=== PATIENT | male | born 1985 | race Caucasian/White ===

== ENCOUNTER 2021-07-23 18:02 | Inpatient (IN) | payer SELFPAY ==
[~2021-07-23] VITALS: Ht 165.1 cm; Wt 59.0 kg
--- NOTE | 2021-07-23 18:18 | NUR ---
Patient BIBA to ER bed 2.
[2021-07-23 18:25] VITALS: BP 117/66
--- NOTE | 2021-07-23 18:25 | NUR ---
DR SERRANO AT BEDSIDE EXAMINING PT
--- NOTE | 2021-07-23 18:30 | NUR ---
36 Y/O MALE BIBA FROM HOME C/O SOB X1DAY. PER EMS PT DESATURATING 66% ON ROOM AIR. PT PLACED ON 10L NON REBREATHER O2 SATURATION AT 73%. IV SITE TO LT AC 20G, INTACT, PATENT. RECEIVED 4MG OF ZOFRAN AND 1 L BOLUS EN ROUTE. ALSO C/O HEADACHE, NAUSEA/VOMITING. MEDHX: DENIES NKA
--- NOTE | 2021-07-23 18:35 | NUR ---
PT PRESENTS WITH LABORED BREATHING, TACHYPNEIC, USING ACCESSORY MUSCLES SATING 95% ON 15 LPM NRB. BS REVEAL RUL, RML: DIMINISHED RLL: COARSE/DIM. JUSTUS, LLL: CLEAR. WILL CONTINUE TO MONITOR.
--- NOTE | 2021-07-23 18:54 | NUR ---
ABG RESULTS SHOWED TO BE VENOUS BLOOD REPORTED RESULTS TO DR. SERRANO.
--- NOTE | 2021-07-23 18:54 | NUR ---
FLU, IMAN, AND NOVEL SWABS COLLECTED AND SENT TO LAB WITH [facility]
--- NOTE | 2021-07-23 18:55 | NUR ---
LAB AT BEDSIDE
--- NOTE | 2021-07-23 19:05 | NUR ---
URINE COLLECTED HANDED TO FARHAT MCGEE
--- NOTE | 2021-07-23 19:07 | NUR ---
XRAY AT BEDSIDE
[2021-07-23 19:17] LABS: BASOPHILS # (AUTO) 0.1 K/uL (0.00-0.22); BASOPHILS % (AUTO) 0.6 % (0.0-2.0); HEMATOCRIT 46.4 % (36-52); HEMOGLOBIN 15.7 g/dL (12.0-18.0); LYMPHOCYTES # (AUTO) 0.3 K/uL (2.0-11.5); LYMPHOCYTES % (AUTO) 2.9 % (20.5-51.1); MEAN CORPUSCULAR HEMOGLOBIN 32 pg (27-31); MEAN CORPUSCULAR HGB CONC 34 g/dL (33-37); MEAN CORPUSCULAR VOLUME 93.6 fL (80-94); MONOCYTES # (AUTO) 0.4 K/uL (0.8-1.0); MONOCYTES % (AUTO) 4.1 % (1.7-9.3); NEUTROPHILS # (AUTO) 9.6 K/uL (1.8-7.7); NEUTROPHILS % (AUTO) 92.4 % (42.2-75.2); PLATELET COUNT (AUTO) 226 K/uL (140-450); RED BLOOD CELL COUNT(AUTO) 4.96 MIL/uL (4.20-6.10); RED CELL DISTRIBUTION WIDTH 12.6 % (11.6-13.7); WHITE BLOOD COUNT (AUTO) 10.4 K/uL (4.8-10.8)
--- NOTE | 2021-07-23 19:23 | NUR ---
Pt report given to MEGAN RN. Transfer of care at this time.
--- NOTE | 2021-07-23 19:23 | NUR ---
Received report from Yehuda JUAREZ for continuity of care.
[2021-07-23 19:24] LABS: APPEARANCE,URINE CLEAR (CLEAR); BILIRUBIN,URINE NEGATIVE (NEGATIVE); BLOOD, URINE 1+ (NEGATIVE); COLOR,URINE YELLOW (YELLOW); LEUKOCYTE ESTERASE ,URINE NEGATIVE (NEGATIVE); NITRITE, URINE NEGATIVE (NEGATIVE); UGLUCOSE 3+ (NEGATIVE)
[2021-07-23] MEDS ORDERED: AZITHROMYCIN 500 MG in DEXTROSE 5% 250 ML IV ONE (19:50)
[2021-07-23] MEDS ORDERED: DEXAMETHASONE 10 MG/ML VIAL IVP ONE (19:50)
[2021-07-23 19:57] LABS: ALBUMIN 2.9 g/dL (3.4-5.0); ANION GAP 14.5 (8-16); CARBON DIOXIDE 25.2 mmol/L (21-32); CREATININE 1.5 mg/dL (0.6-1.3); POTASSIUM 3.7 mmol/L (3.5-5.1); TOTAL BILIRUBIN 0.2 mg/dL (0.0-1.0)
--- NOTE | 2021-07-23 19:57 | NUR ---
PATIENT REPORTS FEELING LIKE IN A DREAM-- PATIENT BP AT 77/46. MERCED DELAROSA
[2021-07-23] MEDS ORDERED: NACL 0.9% 1,000 ML IV ONE ×2 (20:00→20:30)
[2021-07-23 20:02] LABS: LACTATE DEHYDROGENASE 280 U/L (85-227)
[2021-07-23 20:08] LABS: C-REACTIVE PROTEIN QUANT < 0.2 mg/dL (0.0-0.9)
[2021-07-23] MEDS ORDERED: cefTRIAXone 1,000 MG VIAL ONE (20:15)
--- NOTE | 2021-07-23 20:30 | NUR ---
DR. SERRANO ORDERED BIPAP. PLACED PT ON V60 ST MODE IPAP 12, EPAP 6, RR 14, 100% FIO2. PT CURRENT SAT 100%. WILL CONTINUE TO MONITOR.
[2021-07-23] MEDS ORDERED: AZITHROMYCIN 500 MG INJ VIAL IV ONE (20:44)
[2021-07-23 20:50] LABS: RBC,URINE 0-5 /HPF (0-5); WBC,URINE 0-5 /HPF (0-5)
--- NOTE | 2021-07-23 20:53 | NUR ---
provided patient with urinal to urinate
[2021-07-23] MEDS ORDERED: ASPIRIN 325 MG TAB PO ONE (20:55)
--- NOTE | 2021-07-23 22:25 | NUR ---
TRANSFERRED PT TO CT ON NRB WITH NO ISSUES. PT BACK IN ER ON BIPAP SATING 100%. WILL CONTINUE TO MONITOR.
--- NOTE | 2021-07-23 22:25 | NUR ---
patient to ct via [facility]
[2021-07-23] MEDS: NACL 0.9% 1,000 ML IV SCH (22:45)
--- NOTE | 2021-07-24 00:07 | NUR ---
Called MD Hoff regarding patient condition-- received orders of 1L of NS bolus and continue to monitor BP for patient.
[2021-07-24] MEDS ORDERED: NACL 0.9% 1,000 ML IV SCH (01:20)
--- NOTE | 2021-07-24 02:10 | NUR ---
PT LAYING IN BED, HOB ELEVATE, SKIN INTACT, W/ NO SINGS IF RESPIRATORY DISTRESS SATING 100% ON V6O. BS REVEAL RUL,RML: CLEAR DIMINISHED RLL: COARSE DIMINISHED/ JUSTUS,LL: CLEAR. PT TOLERATING NIPPV WELL WILL CONTINUE TO MONITOR.
--- NOTE | 2021-07-24 02:19 | NUR ---
sent message to MD Hoff about patient BP awaiting for orders
--- NOTE | 2021-07-24 02:58 | NUR ---
Patient appears to be resting comfortably in bed- semi fowlers, eyes closed, fluids running, and on bipap. Vital Signs within normal limits. Respirations even and unlabored. No signs of distress noted. Safety measures are in place, and will continue to monitor patient.
--- NOTE | 2021-07-24 04:15 | NUR ---
PT LAYING IN BED, HOB ELEVATE, SKIN INTACT, W/ NO SINGS IF RESPIRATORY DISTRESS SATING 100% ON V6O. PT TOLERATING NIPPV WELL. WILL CONTINUE TO MONITOR.
--- NOTE | 2021-07-24 06:55 | NUR ---
provided urinal for patient
[2021-07-24] MEDS: NACL 0.9% 1,000 ML IV SCH ×2 (07:10→15:16)
--- NOTE | 2021-07-24 07:19 | NUR ---
Pt report given to Viktor RN and Delisa JUAREZ. Transfer of care at this time.
--- NOTE | 2021-07-24 07:30 | NUR ---
Called MD Hoff about troponin, low BP and low MAP-- received orders of Heparin 5000units subQ Q12h, NS changed to 120ml/hr, Levophed drip started 4mg, and PICC line order
[2021-07-24] MEDS ORDERED: NOREPINEPHRINE 4 MG in DEXTROSE 5% 250 ML IV PRN (07:40)
--- NOTE | 2021-07-24 08:30 | NUR ---
DR BROWN HERE TO SEE PT. MADE AWARE OF ELEVATED TROPONIN. NO NEW ORDERS NOTED.
[2021-07-24] MEDS ORDERED: AZITHROMYCIN 500 MG INJ VIAL IV ONE (09:09)
[2021-07-24] MEDS ORDERED: cefTRIAXone 1,000 MG VIAL ONE (09:10)
[2021-07-24] MEDS ORDERED: ALBUTEROL HFA MDI 90 MCG/ACTUATION 8 GM INH PRN (09:15)
[2021-07-24] MEDS ORDERED: POTASSIUM CHLORIDE 10 MEQ TABER PO PRN (09:30)
[2021-07-24] MEDS ORDERED: ACETAMINOPHEN 325 MG TAB PO PRN (09:30)
[2021-07-24] MEDS ORDERED: HYDROcodone/APAP 5/325 MG 1 TAB TAB PO PRN (09:30)
[2021-07-24] MEDS ORDERED: MORPHINE SULFATE 2 MG/ML SYR IVP PRN (09:30)
[2021-07-24] MEDS ORDERED: ONDANSETRON 4 MG/2 ML VIAL IM/IVP PRN (09:30)
[2021-07-24] MEDS ORDERED: DOCUSATE SODIUM 100 MG GELCAP PO PRN (09:30)
[2021-07-24] MEDS ORDERED: LORazepam 2 MG/ML VIAL IM/IVP PRN (09:30)
[2021-07-24] MEDS ORDERED: MAG SULF 2000 MG/WATER PREMIX 50 ML IV PRN (09:30)
[2021-07-24] MEDS ORDERED: ZOLPIDEM 5 MG TAB PO PRN (09:30)
--- NOTE | 2021-07-24 10:43 | NUR ---
LEVOPHED INFUSING PER ORDER 4MCG/MIN VERIFIED BY SECOND RN.
[2021-07-24 11:39] LABS: CHOL/HDL RATIO 2.2 (1-4.5); THYROID STIMULATING HORMONE 0.97 uIU/mL (0.34-3.74)
--- NOTE | 2021-07-24 13:36 | NUR ---
PATIENT HAS BEEN SCREENED AND CATEGORIZED HIGH NUTRITION RISK. PATIENT WILL BE SEEN WITHIN 1-2 DAYS OF ADMISSION. 07/24/21-07/25/[address]
[2021-07-24] MEDS: AZITHROMYCIN 500 MG in DEXTROSE 5% 250 ML IV SCH (13:53)
[2021-07-24] MEDS: methylPREDNISolone SS 40 MG/ML VIAL IVP SCH ×2 (13:53→21:38)
--- NOTE | 2021-07-24 14:09 | NUR ---
07/24/21 RD INITIAL ASSESSMENT COMPLETED PLEASE REFER TO NUTRITION ASSESSMENT UNDER CARE ACTIVITY FOR ESTIMATED NUTRITIONAL NEEDS. 1. WHEN/IF MEDICALLY APPROPRIATE, RECOMMEND CLEAR LIQUID DIET -ADVANCE TO REGULAR DIET TOLERATED 2. RD TO FOLLOW-UP 2-3 DAYS, HIGH RISK MAGNOLIA TOBAR, RD
[2021-07-24] MEDS: ALBUTEROL SULFATE/IPRATROPIU 3 ML SOL IH SCH ×3 (15:00→23:18)
--- NOTE | 2021-07-24 15:15 | NUR ---
bipap fio2 50% tolerating well. nad. safety maintained.
--- NOTE | 2021-07-24 16:24 | NUR ---
pt removed form bipap and placed on nc 4l tolerating well. will continue to monitor.
--- NOTE | 2021-07-24 18:13 | NUR ---
pt tolerating 4l nc well no acute distress noted. safety maintained.
--- NOTE | 2021-07-24 18:38 | NUR ---
PT WAS PLACED ON 3LPM N/C AND TOLERATING WELL. WILL CONTINUE TO MONITOR.
--- NOTE | 2021-07-24 19:13 | NUR ---
Received report from Delisa JUAREZ for continuity of care.
--- NOTE | 2021-07-24 20:29 | NUR ---
Abigail copeland in EDM - 07/25/21 at 0642 by ELVIRA patient ambulated to the bathroom without assistance or verified with nurse if patient is able to ambulate. family member took patient off the monitor and off fluids.--- currently keeping a close eye on patient.
[2021-07-24] MEDS: ZINC SULF 220 MG CAP PO SCH (21:38)
--- NOTE | 2021-07-24 23:11 | NUR ---
patient requesting urinal and RT took patient off NC-- tolerating well saturating at 96%. will continue to monitor patient.
[2021-07-25] MEDS: NACL 0.9% 1,000 ML IV SCH ×3 (00:26→16:35)
[2021-07-25] MEDS ORDERED: NOREPINEPHRINE 4 MG/4 ML VIAL IV ONE (03:04)
--- NOTE | 2021-07-25 03:07 | NUR ---
Patient appears to be resting comfortably in bed- semi fowlers, eyes closed, and with fluids and medicine running through the right upper arm. Vital Signs within normal limits. Respirations even and unlabored. No signs of distress noted. Safety measures are in place, placed on monitor, and will continue to monitor patient.
--- NOTE | 2021-07-25 07:12 | NUR ---
Pt report given to Josy JUAREZ. Transfer of care at this time.
--- NOTE | 2021-07-25 07:13 | NUR ---
RECEIVED REPORT FROM ANN GUZMAN. TRANSFER OF CARE AT THIS TIME.
[2021-07-25] MEDS: ALBUTEROL SULFATE/IPRATROPIU 3 ML SOL IH SCH ×4 (07:17→19:23)
--- NOTE | 2021-07-25 07:26 | NUR ---
PT RESTING IN BED, EYES CLOSED VISIBLE EQUAL RISE AND FALL OF CHEST, VSS, WILL CONTINUE TO MONITOR.
[2021-07-25 07:36] LABS: BASOPHILS % (AUTO) 0.1 % (0.0-2.0); HEMOGLOBIN 13.4 g/dL (12.0-18.0); LYMPHOCYTES # (AUTO) 0.5 K/uL (2.0-11.5); MEAN CORPUSCULAR HEMOGLOBIN 31 pg (27-31); MEAN CORPUSCULAR HGB CONC 34 g/dL (33-37); MEAN CORPUSCULAR VOLUME 91.7 fL (80-94); MONOCYTES # (AUTO) 0.6 K/uL (0.8-1.0); MONOCYTES % (AUTO) 3.7 % (1.7-9.3); NEUTROPHILS # (AUTO) 14.3 K/uL (1.8-7.7); NEUTROPHILS % (AUTO) 93.2 % (42.2-75.2); PLATELET COUNT (AUTO) 205 K/uL (140-450); RED BLOOD CELL COUNT(AUTO) 4.26 MIL/uL (4.20-6.10); RED CELL DISTRIBUTION WIDTH 12.7 % (11.6-13.7); WHITE BLOOD COUNT (AUTO) 15.3 K/uL (4.8-10.8)
[2021-07-25] MEDS: methylPREDNISolone SS 40 MG/ML VIAL IVP SCH ×2 (07:40→17:14)
[2021-07-25 08:07] LABS: T4 (THYROXINE) 6.3 ug/dL (4.5-12.0)
[2021-07-25] MEDS ORDERED: cefTRIAXone 1,000 MG VIAL ONE (08:20)
[2021-07-25] MEDS: VITAMIN D 400 IU TAB PO SCH (08:39)
[2021-07-25] MEDS: ASCORBIC ACID 500 MG TAB PO SCH (08:45)
[2021-07-25] MEDS ORDERED: AZITHROMYCIN 500 MG INJ VIAL IV ONE (09:19)
[2021-07-25] MEDS: ZINC SULF 220 MG CAP PO SCH (09:31)
[2021-07-25] MEDS: AZITHROMYCIN 500 MG in DEXTROSE 5% 250 ML IV SCH (09:31)
[2021-07-25 10:36] LABS: ALBUMIN 2.5 g/dL (3.4-5.0); CARBON DIOXIDE 23.8 mmol/L (21-32); CREATININE 0.8 mg/dL (0.6-1.3); MAGNESIUM 1.7 mg/dL (1.8-2.4); PHOSPHORUS 1.9 mg/dL (2.5-4.9); POTASSIUM 3.8 mmol/L (3.5-5.1); TOTAL BILIRUBIN 0.3 mg/dL (0.0-1.0)
--- NOTE | 2021-07-25 11:15 | NUR ---
PT REPOSITIONED, EMPTIED URINAL 950CC OF CLEAR YELLOW URINE NO SEDIMENT, HOB ELEVATED FOR COMFORT, WILL CONTINUE TO MONITOR.
--- NOTE | 2021-07-25 15:18 | NUR ---
PT HOB ELEVATED FOR COMFORT, VSS, WILL CONTINUE TO MONITOR.
[2021-07-25] MEDS ORDERED: methylPREDNISolone SS 125 MG/2 ML VIAL ONE (16:34)
--- NOTE | 2021-07-25 18:43 | NUR ---
PT PROVIDED WITH DINNER TRAY, HOB ELEVATED FOR COMFORT, WILL CONTINUE TO MONITOR.
--- NOTE | 2021-07-25 19:27 | NUR ---
GAVE REPORT TO ANN CRUZMACHINE BUFFER OF CARE AT THIS TIME.
--- NOTE | 2021-07-25 20:00 | NUR ---
RESTING COMFORTABLY WITH EYES OPEN. RESPIRATIONS ARE REGULAR AND UNLABORED. PT STATES "I AM FEELING BETTER"
--- NOTE | 2021-07-25 22:00 | NUR ---
VOIDED 1200CC CLEAR SARI URINE PER URINAL
--- NOTE | 2021-07-26 | NUR ---
RESTING WITH EYES CLOSED, RESPIRATIONS REGULAR AND UNLABORED
[2021-07-26] MEDS: methylPREDNISolone SS 40 MG/ML VIAL IVP SCH ×4 (00:05→22:03)
[2021-07-26] MEDS: ZINC SULF 220 MG CAP PO SCH ×3 (00:06→21:22)
--- NOTE | 2021-07-26 04:00 | NUR ---
AWAKE ASSISTED WITH POSITIONING FOR COMFORT. WARM BLANKETS GIVEN
[2021-07-26] MEDS: ALBUTEROL SULFATE/IPRATROPIU 3 ML SOL IH SCH ×3 (05:35→18:00)
--- NOTE | 2021-07-26 07:17 | NUR ---
Report and continuation of care received from ANN Stoner
--- NOTE | 2021-07-26 07:45 | NUR ---
Patient resting in position of comfort. bus driver/monitor remains in place. Pt reports slight headache, Tylenol PRN to be given.
[2021-07-26] MEDS: NACL 0.9% 1,000 ML IV SCH ×2 (08:11→17:35)
--- NOTE | 2021-07-26 08:12 | NUR ---
RT at bedside
[2021-07-26] MEDS ORDERED: cefTRIAXone 1,000 MG VIAL ONE (08:16)
[2021-07-26] MEDS: VITAMIN D 400 IU TAB PO SCH (08:32)
[2021-07-26] MEDS: ASCORBIC ACID 500 MG TAB PO SCH (08:32)
[2021-07-26 08:50] LABS: HEMATOCRIT 38.2 % (36-52); HEMOGLOBIN 13.2 g/dL (12.0-18.0); LYMPHOCYTES # (AUTO) 0.8 K/uL (2.0-11.5); LYMPHOCYTES % (AUTO) 5.5 % (20.5-51.1); MEAN CORPUSCULAR HEMOGLOBIN 31 pg (27-31); MEAN CORPUSCULAR HGB CONC 34 g/dL (33-37); MEAN CORPUSCULAR VOLUME 91.3 fL (80-94); MONOCYTES # (AUTO) 0.7 K/uL (0.8-1.0); MONOCYTES % (AUTO) 4.7 % (1.7-9.3); NEUTROPHILS # (AUTO) 12.6 K/uL (1.8-7.7); NEUTROPHILS % (AUTO) 89.8 % (42.2-75.2); PLATELET COUNT (AUTO) 214 K/uL (140-450); RED BLOOD CELL COUNT(AUTO) 4.19 MIL/uL (4.20-6.10); RED CELL DISTRIBUTION WIDTH 12.7 % (11.6-13.7); WHITE BLOOD COUNT (AUTO) 14.1 K/uL (4.8-10.8)
[2021-07-26 08:55] LABS: ALBUMIN 2.6 g/dL (3.4-5.0); ANION GAP 10.5 (8-16); CARBON DIOXIDE 25.3 mmol/L (21-32); CREATININE 0.7 mg/dL (0.6-1.3); MAGNESIUM 1.9 mg/dL (1.8-2.4); PHOSPHORUS 2.8 mg/dL (2.5-4.9); POTASSIUM 3.8 mmol/L (3.5-5.1); TOTAL BILIRUBIN 0.3 mg/dL (0.0-1.0)
--- NOTE | 2021-07-26 09:05 | NUR ---
Pt reports + relief to headache, 0/10 pain at this time. No other medical complaints. All pt needs met.
--- NOTE | 2021-07-26 09:43 | NUR ---
Breakfast mealtray at bedside. Pt completing meal
--- NOTE | 2021-07-26 11:03 | NUR ---
RAD at bedside
[2021-07-26] MEDS ORDERED: AZITHROMYCIN 500 MG INJ VIAL IV ONE (11:24)
[2021-07-26] MEDS: AZITHROMYCIN 500 MG in DEXTROSE 5% 250 ML IV SCH (11:32)
--- NOTE | 2021-07-26 11:40 | NUR ---
Dr. Chamberlain is evaluating pt at bedside
--- NOTE | 2021-07-26 12:20 | NUR ---
Pt c/o pain to IV site to R AC. ABX IVPB paused at this time.
--- NOTE | 2021-07-26 13:20 | NUR ---
Lunch mealtray at bedside. Apple juice provided per request.
--- NOTE | 2021-07-26 13:30 | NUR ---
RT at bedside for breathing tx
--- NOTE | 2021-07-26 13:55 | NUR ---
RT noted rales to bilateral bases
--- NOTE | 2021-07-26 14:00 | NUR ---
700mL urine discarded from urinal. Discarded and urinal replaced.
--- NOTE | 2021-07-26 15:21 | NUR ---
Patient with bedside commode for bowel movement. Commode cleaned and discarded. school lunch monitor in place. Bed locked in lowest position, side rails x 2. SpO2 95% on room air no respiratory distress noted.
--- NOTE | 2021-07-26 16:30 | NUR ---
Contacted Socorro who states to recontact for report in 5 min
--- NOTE | 2021-07-26 16:36 | NUR ---
RECEIVED CALL FROM NURSE LONG FROM ER REPORT FOR CONTINUITY OF CARE.
--- NOTE | 2021-07-26 16:39 | NUR ---
Report given to Socorro. All questions answered. Advised of 5-10 minute ETA for transport.
--- NOTE | 2021-07-26 17:30 | NUR ---
PT ADMITTED FROM ER ON WHEELCHAIR ALERT AND ORIENTED NO DISTRESS NOTED.
--- NOTE | 2021-07-26 17:45 | NUR ---
Patient will be admitted to care of Dr. Hoff. Admited to M/S. Will go to room 117A. Belongings list completed. Report to ANN Quintanilla.
--- NOTE | 2021-07-26 17:58 | NUR ---
Patient's Plan of Care was discussed and reviewed with UX RESEARCH ASSOCIATE: TR PRATHER
--- NOTE | 2021-07-26 18:39 | NUR ---
PT ALERT AND ORIENTED , SYRIAC SPEAKING WITH SOME ICELANDIC. NO SHORTNESS OF BREATH. o2 SAT AT 97% AT ROOM AIR. DENIES PAIN. ON DROPLET ISOLATION PRECAUTION FOR PENDING PCR TEST.
--- NOTE | 2021-07-26 19:15 | NUR ---
ENDORSE TO PRODUCTION BOW MAKER NURSE FOR CONTINUITY OF CARE. PT ON STABLE CONDITION
--- NOTE | 2021-07-26 19:16 | NUR ---
RECD. RESTING IN BED, AWAKE, A/OX4. RESPIRATION EVEN AND UNLABORED. 02 SATURATION - 97% ON ROOM AIR. IV OF NS INFUSING AT 120 ML/HR, LEFT UPPER ARM G18. USES THE URINAL, PANKAJ TO AMBULATE BY HIMSELF TO THE BR. NOTED WITH OCCASIONAL UNPRODUCTIVE COUGHING. MEDICATIONS AND CARE FOR THE SHIFT DISCUSSED WITH PATIENT. VERBALIZED UNDERSTANDING. DENIES PAIN 0/10.
--- NOTE | 2021-07-26 19:45 | NUR ---
Patient's Plan of Care was discussed and reviewed with GREASE CUP FILLER: GENARO SIMON
[2021-07-26 20:00] VITALS: BP 126/65
--- NOTE | 2021-07-26 21:45 | NUR ---
SOLU-MEDROL MED GIVEN PER ORDER. WILL CONTINUE TO MONITOR
[2021-07-27] VITALS: BP 107/62
--- NOTE | 2021-07-27 | NUR ---
SLEEPING COMFORTABLY IN BED, RESPIRATION EVEN AND UNLABORED. CALL LIGHT IN REACH.
--- NOTE | 2021-07-27 02:00 | NUR ---
CHECKED PATIENT, ON HIS BACK ASLEEP. NO RESPIRATORY DISTRESS NOTED.
[2021-07-27] MEDS: NACL 0.9% 1,000 ML IV SCH ×2 (02:30→10:15)
--- NOTE | 2021-07-27 04:00 | NUR ---
CHECKED PATIENT, STILL SLEEPING COMFORTABLY IN BED. NO COUGHING NOTED. CALL LIGHT IN REACH.
[2021-07-27] MEDS: methylPREDNISolone SS 40 MG/ML VIAL IVP SCH ×2 (06:07→12:17)
--- NOTE | 2021-07-27 06:30 | NUR ---
ABLE TO SLEEP WELL. NO SOB NOTED DURING THE SHIFT.
--- NOTE | 2021-07-27 07:25 | NUR ---
CONDITION REMAIN STABLE. ENDORSED TO AM NURSE FOR CONTINUITY OF CARE.
--- NOTE | 2021-07-27 07:28 | NUR ---
RECEIVED REPORT FROM PURCHASING ANALYST NURSE FOR CONTINUITY OF CARE. PT IS IN BED RESTING AT THIS TIME. PT IS ALERT AND ORIENTED X4. ABLE TO VERBALIZE NEEDS TO STAFF. PT IS ON ROOM AIR, WITH 02 SAT AT 96%. RESPIRATIONS ARE EVEN AND UNLABORED. NO SIGNS OF DISTRESS NOTED. PT IS ON REGULAR DIET. ABD IS NONTENDER, NONDISTENDED WITH BOWEL SOUNDS PRESENT. PT IS CONTINENT OF BOWEL AND BLADDER. PT STATES HE HAD A BOWEL MOVEMENT YESTERDAY. PT HAS IV TO L AC, 20G. IV IS INTACT AND PATENT. SKIN IS WARM, DRY, AND INTACT. ALL SAFETY MEASURES IN PLACE. WILL CONTINUE TO MONITOR.
[2021-07-27 07:57] LABS: HEMOGLOBIN 12.9 g/dL (12.0-18.0); MEAN CORPUSCULAR VOLUME 91.4 fL (80-94); PLATELET COUNT (AUTO) 223 K/uL (140-450); RED CELL DISTRIBUTION WIDTH 12.8 % (11.6-13.7)
[2021-07-27 08:00] VITALS: BP 107/56
--- NOTE | 2021-07-27 08:00 | NUR ---
Patient's Plan of Care was discussed and reviewed with MUNITIONS HANDLER: TRINO SHRESTHA
[2021-07-27 08:09] LABS: ALBUMIN 2.4 g/dL (3.4-5.0); ANION GAP 10.3 (8-16); CARBON DIOXIDE 24.8 mmol/L (21-32); CREATININE 0.7 mg/dL (0.6-1.3); MAGNESIUM 1.9 mg/dL (1.8-2.4); PHOSPHORUS 3.2 mg/dL (2.5-4.9); POTASSIUM 4.1 mmol/L (3.5-5.1); TOTAL BILIRUBIN 0.3 mg/dL (0.0-1.0)
[2021-07-27] MEDS: VITAMIN D 400 IU TAB PO SCH (08:23)
[2021-07-27] MEDS: ZINC SULF 220 MG CAP PO SCH (08:23)
[2021-07-27] MEDS: ASCORBIC ACID 500 MG TAB PO SCH (08:23)
[2021-07-27] MEDS: ALBUTEROL SULFATE/IPRATROPIU 3 ML SOL IH SCH (08:23)
[2021-07-27 08:32] LABS: HEMATOCRIT 37.4 % (36-52); MEAN CORPUSCULAR HEMOGLOBIN 32 pg (27-31); MEAN CORPUSCULAR HGB CONC 35 g/dL (33-37); RED BLOOD CELL COUNT(AUTO) 4.09 MIL/uL (4.20-6.10); WHITE BLOOD COUNT (AUTO) 12.2 K/uL (4.8-10.8)
--- NOTE | 2021-07-27 08:34 | NUR ---
ADMINISTERED ALL SCHEDULED MEDICATIONS. EDUCATED PT ON MEDS ADMINISTERED. PT VERBALIZED AN UNDERSTANDING OF ALL INFORMATION PROVIDED. WILL CONTINUE TO MONITOR.
[2021-07-27] MEDS: AZITHROMYCIN 500 MG in DEXTROSE 5% 250 ML IV SCH (08:38)
--- NOTE | 2021-07-27 11:15 | NUR ---
DID ROUNDS ON PT. PT IS IN BED ON THE PHONE. NO COMPLAINTS OF PAIN OR DISCOMFORT. RESPIRATIONS ARE EVEN AND UNLABORED. NO SIGNS OF DISTRESS NOTED. ALL SAFETY MEASURES IN PLACE. WILL CONTINUE TO MONITOR.
[2021-07-27] MEDS ORDERED: VITC500 PO (11:34)
[2021-07-27] MEDS ORDERED: VITD400 PO (11:34)
[2021-07-27] MEDS ORDERED: [UNRECOGNIZED DRUG - CODE] PO (11:34)
[2021-07-27] MEDS ORDERED: AZIT250T11 PO (11:34)
[2021-07-27] MEDS ORDERED: ZINC220C29 PO (11:34)
[2021-07-27 12:36] LABS: LYMPHOCYTES % (MANUAL) 7 % (20-46); MONOCYTES % (MANUAL) 3 % (5-12)
--- NOTE | 2021-07-27 14:26 | NUR ---
DID ROUNDS ON PT. PT IN BED SLEEPING AT THIS TIME. RESPIRATIONS ARE EVEN AND UNLABORED. PT CONTINUES ON ROOM AIR, WITH 02 SAT AT 95%. NO SIGNS OF DISTRESS NOTED. WILL CONTINUE TO MONITOR.
--- NOTE | 2021-07-27 16:16 | NUR ---
DISCHARGE ORDER IN PLACE. WENT OVER DISCHARGE PAPERWORK WITH PT. PT VERBALIZED AN UNDERSTANDING OF ALL INFORMATION PROVIDED. ANSWERED ALL QUESTIONS. PT SIGNED ALL PAPERWORK. REMOVED WRIST BAND. IV REMOVED. IV CATHETER IN TACT. ALL BELONGINGS TAKEN UPON DISCHARGE.
== END 2021-07-27 16:10 | disposition home or self-care (01) | DRG 871 ==
LOC: MED 18:02 → MMU 21:15 → MTU 21:15
PROC: 5A09357 Assistance with Respiratory Ventilation, Less than 24 Consecutive Hours, Continuous Positive Airway Pressure (ICD-10-PCS; principal; 2021-07-23)
DX: A41.9 Sepsis, unspecified organism (principal); R65.21 Severe sepsis with septic shock; N17.0 Acute kidney failure with tubular necrosis; J18.9 Pneumonia, unspecified organism; J96.02 Acute respiratory failure with hypercapnia; J96.01 Acute respiratory failure with hypoxia; E44.0 Moderate protein-calorie malnutrition; D68.59 Other primary thrombophilia; E87.2 Acidosis; E86.0 Dehydration; F14.10 Cocaine abuse, uncomplicated; Z20.822 Contact with and (suspected) exposure to COVID-19; Z68.21 Body mass index [BMI] 21.0-21.9, adult
CPT/HCPCS: 36415; 36600; 71045; 71275; 80053; 81001; 82150; 82550; 82803; 83036; 83605; 83615; 83690; 83735; 83880; 84100; 84134; 84436; 84443; 84484; 85025; 85379; 85384; 85610; 85651; 85730; 86140; 87040; 87081; 87086; 87804; 93005; 94640; 94660; 96365; 96367; 96372; 96375; 99291; J0456; J0696; J1100; J1644; J2405; J2920; J2930; J3490; J7060; Q0092; Q9967; U0003